=== PATIENT | male | born 1935 | race Caucasian/White ===

== ENCOUNTER 2024-02-28 02:42 | Inpatient (IN) | payer OTHER, MEDICARE ==
[2024-02-28] VITALS (7 sets, daily range): BP systolic 89–106; BP diastolic 50–60; TEMP 97.8–98.6; O2SAT 94–97
[~2024-02-28] VITALS: Ht 188 cm; Wt 81.0 kg
[2024-02-28 03:19] LABS: VENOUS HCO3 20.7 MMOL/L (23.0-27.0); VENOUS O2 SATURATION 56.9 % (60.0-80.0); VENOUS PARTIAL PRESSURE CO2 50.1 mmHg (38.0-50.0); VENOUS PARTIAL PRESSURE O2 32.3 mmHg (30.0-50.0); VENOUS PH 7.233 UNITS (7.330-7.430); VENOUS TOTAL CO2 22.2 MMOL/L (24.0-28.0)
[2024-02-28 03:29] LABS: BASO % 0.2 % (0.0-1.0); EOS # 0.1 10^3/uL (0.0-0.5); EOS % 2.1 % (0.0-3.0); HEMATOCRIT 37.1 % (42.0-52.0); HEMOGLOBIN 11.9 g/dl (13.5-17.5); LYMPH # 0.7 10^3/uL (1.5-5.0); LYMPH % 13.3 % (24.0-44.0); MEAN CORPUSCULAR HEMOGLOBIN 30.8 pg (27.0-33.0); MEAN CORPUSCULAR HGB CONC 32.1 g/dl (32.0-36.5); MEAN CORPUSCULAR VOLUME 96.1 fl (80.0-96.0); MONO # 0.2 10^3/uL (0.0-0.8); NEUTROPHILS # 4.2 10^3/uL (1.5-8.5); NEUTROPHILS % 80.2 % (36.0-66.0); PLATELET COUNT, AUTOMATED 142 10^3/uL (150-450); RED BLOOD COUNT 3.86 10^6/uL (4.30-6.10); WHITE BLOOD COUNT 5.3 10^3/uL (4.0-10.0)
[2024-02-28] MEDS: NS (Normal Saline) 0.9% 1,000 ML IV ONE ×5 (03:37→18:36)
[2024-02-28 03:48] LABS: CK-MB VALUE MASS 1.2 NG/ML (<3.6)
[2024-02-28 03:51] LABS: CALCIUM LEVEL 9.6 MG/DL (8.3-10.6); CREATININE FOR GFR 2.09 MG/DL (0.70-1.30); GLOMERULAR FILTRATION RATE 32.1 (>35); MAGNESIUM LEVEL 1.6 MG/DL (1.8-2.4); POTASSIUM SERUM 3.9 MMOL/L (3.5-5.1)
[2024-02-28 03:52] LABS: THYROID STIMULATING HORMONE 0.779 uIU/ML (0.55-4.78)
[2024-02-28 03:53] LABS: FREE T4 1.41 NG/DL (0.89-1.76)
[2024-02-28 03:54] LABS: INR 1.08; PARTIAL THROMBOPLASTIN TIME 23.1 SECONDS (24.8-34.2); PROTHROMBIN TIME 14.3 SECONDS (12.5-14.5)
[2024-02-28 03:59] LABS: MB/CK RELATIVE INDEX 2.03 (< OR =4)
[2024-02-28] MEDS ORDERED: LEVO175T2 PO (04:26)
[2024-02-28] MEDS ORDERED: PANT40TA29 PO (04:26)
[2024-02-28] MEDS ORDERED: TROS20TA3 PO (04:26)
[2024-02-28] MEDS ORDERED: TRIA37.577 PO (04:26)
[2024-02-28] MEDS: LIDOCAINE 2% MDV 20ML VIAL SC ONE (04:35)
[2024-02-28] MEDS: MAG SULF 1GM/100ML (MAG RUN) 1 GM in IV 1 EA IV ONE (04:37)
[2024-02-28] MEDS ORDERED: metroNIDAZOLE 500 MG in IV 1 EA IV ONE (05:30)
[2024-02-28] MEDS ORDERED: VANCOMYCIN 125MG CAPSULE PO SCH ×2 (05:35→12:00)
[2024-02-28] MEDS: VANCOMYCIN 125MG CAPSULE PO ONE (05:49)
[2024-02-28] MEDS: LOPERAMIDE 2 MG CAPLET PO PRN (07:11)
[2024-02-28 07:39] LABS: BASO % 0.1 % (0.0-1.0); EOS # 0.2 10^3/uL (0.0-0.5); HEMATOCRIT 32.2 % (42.0-52.0); HEMOGLOBIN 10.3 g/dl (13.5-17.5); LYMPH # 0.3 10^3/uL (1.5-5.0); LYMPH % 4.2 % (24.0-44.0); MEAN CORPUSCULAR HEMOGLOBIN 31.2 pg (27.0-33.0); MEAN CORPUSCULAR VOLUME 97.6 fl (80.0-96.0); MONO # 0.7 10^3/uL (0.0-0.8); MONO % 9.7 % (2.0-8.0); NEUTROPHILS # 6.2 10^3/uL (1.5-8.5); NEUTROPHILS % 83.7 % (36.0-66.0); PLATELET COUNT, AUTOMATED 127 10^3/uL (150-450); WHITE BLOOD COUNT 7.5 10^3/uL (4.0-10.0)
[2024-02-28 07:49] LABS: ERYTHROCYTE SEDIMENTATION RATE < 1 mm/hr (0-20)
[2024-02-28 08:21] LABS: CALCIUM LEVEL 8.5 MG/DL (8.3-10.6); CREATININE FOR GFR 1.84 MG/DL (0.70-1.30); GLOMERULAR FILTRATION RATE 37.1 (>35); POTASSIUM SERUM 3.7 MMOL/L (3.5-5.1)
[2024-02-28] MEDS: FIDAXOMICIN 200 MG TAB (DIFICID) PO SCH (09:22)
[2024-02-28] MEDS: FAMOTIDINE 20 MG TAB PO SCH (11:09)
[2024-02-28] MEDS: LEVOTHYROXINE 125MCG TABLET (0.125MG) PO SCH (11:10)
[2024-02-28] MEDS: ENOXAPARIN 30MG/0.3ML SYRINGE (J1650 PER 10MG) SC SCH (11:11)
[2024-02-28] MEDS: NS (Normal Saline) 0.9% 1,000 ML IV SCH (14:17)
[2024-02-28] MEDS ORDERED: HOME MED LIST COMPLETE! XX SCH (15:25)
[2024-02-28] MEDS: CALCIUM CARBONATE 500 MG CHEW U/D PO PRN (17:05)
[2024-02-28] MEDS: LEVOTHYROXINE 50MCG TABLET (0.05MG) PO SCH (17:05)
[2024-02-29] VITALS (7 sets, daily range): BP systolic 94–122; BP diastolic 54–87; TEMP 97.2–98.2; O2SAT 92–100
[2024-02-29 06:28] LABS: HEMOGLOBIN 10.3 g/dl (13.5-17.5); MEAN CORPUSCULAR HGB CONC 31.2 g/dl (32.0-36.5); MEAN CORPUSCULAR VOLUME 99.4 fl (80.0-96.0); PLATELET COUNT, AUTOMATED 124 10^3/uL (150-450); RED BLOOD COUNT 3.32 10^6/uL (4.30-6.10); WHITE BLOOD COUNT 6.5 10^3/uL (4.0-10.0)
[2024-02-29 06:54] LABS: CALCIUM LEVEL 8.8 MG/DL (8.3-10.6); CREATININE FOR GFR 1.69 MG/DL (0.70-1.30); POTASSIUM SERUM 4.1 MMOL/L (3.5-5.1)
[2024-02-29 07:09] LABS: EOSINOPHILS 3 % (0-3); LYMPHOCYTES 20 % (16-44); MONOCYTES 7 % (0-5); NEUTROPHILS 70 % (28-66); PLATELET ESTIMATE NORMAL (NORMAL); POIKILOCYTOSIS 2+
[2024-02-29 07:10] LABS: SCHISTOCYTES 1+
[2024-02-29 07:11] LABS: ANISOCYTOSIS 1+; BURR CELLS 1+
[2024-02-29] MEDS: NS 0.45% 1,000 ML IV SCH (09:32)
[2024-03-01 04:00] VITALS: BP 114/58; TEMP 97.6; O2SAT 96
[2024-03-01 06:53] LABS: BASO % 0.2 % (0.0-1.0); EOS # 0.5 10^3/uL (0.0-0.5); EOS % 7.8 % (0.0-3.0); HEMATOCRIT 31.3 % (42.0-52.0); LYMPH # 1.4 10^3/uL (1.5-5.0); LYMPH % 23.9 % (24.0-44.0); MEAN CORPUSCULAR HGB CONC 31.9 g/dl (32.0-36.5); MEAN CORPUSCULAR VOLUME 96.9 fl (80.0-96.0); MONO # 0.6 10^3/uL (0.0-0.8); MONO % 9.7 % (2.0-8.0); NEUTROPHILS # 3.5 10^3/uL (1.5-8.5); NEUTROPHILS % 57.9 % (36.0-66.0); PLATELET COUNT, AUTOMATED 134 10^3/uL (150-450); RED BLOOD COUNT 3.23 10^6/uL (4.30-6.10)
[2024-03-01 07:13] LABS: CALCIUM LEVEL 8.5 MG/DL (8.3-10.6); CREATININE FOR GFR 1.47 MG/DL (0.70-1.30); GLOMERULAR FILTRATION RATE 48.1 (>35); POTASSIUM SERUM 3.4 MMOL/L (3.5-5.1)
[2024-03-01] MEDS: SODIUM BICARBONATE 325 MG TAB PO SCH (08:49)
[2024-03-01] MEDS: POTASSIUM CHLORIDE 10MEQ SR TABLET PO ONE (08:50)
[2024-03-01 12:00] VITALS: BP 123/59; TEMP 98; O2SAT 94
[2024-03-01 20:28] VITALS: BP 121/61; TEMP 97.5; O2SAT 97
[2024-03-02 04:08] VITALS: BP 107/59; TEMP 97.8; O2SAT 98
[2024-03-02 06:49] LABS: BASO % 0.2 % (0.0-1.0); EOS # 0.4 10^3/uL (0.0-0.5); EOS % 7.6 % (0.0-3.0); HEMATOCRIT 28.6 % (42.0-52.0); HEMOGLOBIN 9.4 g/dl (13.5-17.5); LYMPH # 1.7 10^3/uL (1.5-5.0); LYMPH % 31.4 % (24.0-44.0); MEAN CORPUSCULAR HEMOGLOBIN 31.5 pg (27.0-33.0); MEAN CORPUSCULAR HGB CONC 32.9 g/dl (32.0-36.5); MONO # 0.5 10^3/uL (0.0-0.8); MONO % 8.6 % (2.0-8.0); NEUTROPHILS # 2.8 10^3/uL (1.5-8.5); NEUTROPHILS % 51.8 % (36.0-66.0); PLATELET COUNT, AUTOMATED 127 10^3/uL (150-450); RED BLOOD COUNT 2.98 10^6/uL (4.30-6.10); WHITE BLOOD COUNT 5.4 10^3/uL (4.0-10.0)
[2024-03-02 07:42] LABS: CALCIUM LEVEL 8.9 MG/DL (8.3-10.6); CREATININE FOR GFR 1.44 MG/DL (0.70-1.30); GLOMERULAR FILTRATION RATE 49.3 (>35); POTASSIUM SERUM 3.9 MMOL/L (3.5-5.1)
[2024-03-02 12:23] VITALS: BP 99/51; TEMP 98.7; O2SAT 95
[2024-03-02 13:30] VITALS: BP_SYST 101; BP_SYST 99; BP_DIAS 51; BP_DIAS 52
[2024-03-02 13:36] VITALS: BP 67/41
[2024-03-02] MEDS: MIDODRINE 5 MG TAB PO SCH (18:03)
[2024-03-02 20:20] VITALS: BP 125/58; TEMP 98.1; O2SAT 99
[2024-03-02 23:03] VITALS: BP 122/77
[2024-03-03 04:00] VITALS: BP 128/62; TEMP 97.6; O2SAT 98
[2024-03-03 05:02] VITALS: BP 126/60
[2024-03-03 07:20] LABS: HEMATOCRIT 30.4 % (42.0-52.0); HEMOGLOBIN 10.1 g/dl (13.5-17.5); MEAN CORPUSCULAR HEMOGLOBIN 31.1 pg (27.0-33.0); MEAN CORPUSCULAR HGB CONC 33.2 g/dl (32.0-36.5); MEAN CORPUSCULAR VOLUME 93.5 fl (80.0-96.0); PLATELET COUNT, AUTOMATED 138 10^3/uL (150-450); RED BLOOD COUNT 3.25 10^6/uL (4.30-6.10); WHITE BLOOD COUNT 5.9 10^3/uL (4.0-10.0)
[2024-03-03 07:39] LABS: CALCIUM LEVEL 8.9 MG/DL (8.3-10.6); CREATININE FOR GFR 1.32 MG/DL (0.70-1.30); GLOMERULAR FILTRATION RATE 54.5 (>35); POTASSIUM SERUM 3.9 MMOL/L (3.5-5.1)
[2024-03-03 08:35] LABS: EOSINOPHILS 4 % (0-3); LYMPHOCYTES 25 % (16-44); MONOCYTES 5 % (0-5); MYELOCYTES 1 % (0-0); NEUTROPHILS 64 % (28-66); PLATELET ESTIMATE DECREASED (NORMAL)
[2024-03-03 08:37] LABS: POIKILOCYTOSIS 2+
[2024-03-03 10:00] VITALS: BP_SYST 105; BP_SYST 87; BP_DIAS 52; BP_DIAS 55
[2024-03-03 12:11] VITALS: BP 119/55; TEMP 97.5; O2SAT 100
[2024-03-03 12:18] VITALS: BP 128/76; TEMP 98.2; O2SAT 92
[2024-03-03 16:56] LABS: CK-MB VALUE MASS 1.8 NG/ML (<3.6)
[2024-03-03 16:57] LABS: MB/CK RELATIVE INDEX 3.75 (< OR =4)
[2024-03-03 20:09] VITALS: BP 124/56; TEMP 97.3; O2SAT 94
[2024-03-03] MEDS: NS (Normal Saline) 0.9% 1,000 ML IV SCH (20:45)
[2024-03-04 03:27] VITALS: BP 106/57; TEMP 97.6; O2SAT 93
[2024-03-04 06:48] LABS: BASO % 0.4 % (0.0-1.0); EOS # 0.4 10^3/uL (0.0-0.5); EOS % 6.8 % (0.0-3.0); HEMATOCRIT 29.7 % (42.0-52.0); LYMPH # 1.9 10^3/uL (1.5-5.0); LYMPH % 34.3 % (24.0-44.0); MEAN CORPUSCULAR HEMOGLOBIN 31.8 pg (27.0-33.0); MEAN CORPUSCULAR HGB CONC 33.7 g/dl (32.0-36.5); MEAN CORPUSCULAR VOLUME 94.6 fl (80.0-96.0); MONO # 0.6 10^3/uL (0.0-0.8); MONO % 11.1 % (2.0-8.0); NEUTROPHILS # 2.5 10^3/uL (1.5-8.5); NEUTROPHILS % 46.8 % (36.0-66.0); PLATELET COUNT, AUTOMATED 151 10^3/uL (150-450); RED BLOOD COUNT 3.14 10^6/uL (4.30-6.10); WHITE BLOOD COUNT 5.4 10^3/uL (4.0-10.0)
[2024-03-04 06:53] LABS: CALCIUM LEVEL 8.6 MG/DL (8.3-10.6); CREATININE FOR GFR 1.24 MG/DL (0.70-1.30); GLOMERULAR FILTRATION RATE 58.6 (>35); POTASSIUM SERUM 4.2 MMOL/L (3.5-5.1)
[2024-03-04 10:21] VITALS: BP_SYST 104; BP_SYST 110; BP_SYST 133; BP_DIAS 51; BP_DIAS 56; BP_DIAS 63
[2024-03-04 11:52] VITALS: BP 137/59; TEMP 97.3; O2SAT 99
[2024-03-04 12:37] VITALS: BP 116/58
[2024-03-04 13:50] VITALS: BP 140/70; TEMP 97.3; O2SAT 100
[2024-03-04] MEDS: MIDODRINE 5 MG TAB PO SCH (15:46)
[2024-03-04] MEDS: cefTRIAXone SOD 1 GM in DEXTROSE 5% (D5W) ADV/MINI-BAG 50 ML IV SCH (15:46)
[2024-03-04] MEDS ORDERED: MIDODRINE 2.5 MG TAB PO SCH (16:00)
[2024-03-04 20:00] VITALS: BP 124/55; TEMP 97.9; O2SAT 99
[2024-03-05 04:00] VITALS: BP 127/56; TEMP 97.9; O2SAT 99
[2024-03-05 05:01] LABS: BASO % 0.4 % (0.0-1.0); EOS # 0.4 10^3/uL (0.0-0.5); EOS % 6.8 % (0.0-3.0); HEMATOCRIT 29.4 % (42.0-52.0); HEMOGLOBIN 9.7 g/dl (13.5-17.5); LYMPH # 1.5 10^3/uL (1.5-5.0); LYMPH % 26.5 % (24.0-44.0); MEAN CORPUSCULAR HEMOGLOBIN 31.6 pg (27.0-33.0); MEAN CORPUSCULAR VOLUME 95.8 fl (80.0-96.0); MONO # 0.6 10^3/uL (0.0-0.8); MONO % 11.7 % (2.0-8.0); NEUTROPHILS % 54.2 % (36.0-66.0); PLATELET COUNT, AUTOMATED 156 10^3/uL (150-450); RED BLOOD COUNT 3.07 10^6/uL (4.30-6.10); WHITE BLOOD COUNT 5.5 10^3/uL (4.0-10.0)
[2024-03-05 05:29] LABS: BLOOD UREA NITROGEN 21 MG/DL (9-23); CALCIUM LEVEL 8.7 MG/DL (8.3-10.6); CARBON DIOXIDE LEVEL 24 MMOL/L (20-31); CHLORIDE LEVEL 112 MMOL/L (98-107); CREATININE FOR GFR 1.18 MG/DL (0.70-1.30); GLOMERULAR FILTRATION RATE > 60.0 (>35); GLUCOSE, FASTING 107 MG/DL (74-106); POTASSIUM SERUM 3.9 MMOL/L (3.5-5.1); SODIUM LEVEL 143 MMOL/L (136-145)
[2024-03-05 10:20] VITALS: BP_SYST 108; BP_SYST 120; BP_SYST 90; BP_DIAS 38; BP_DIAS 50; BP_DIAS 56
[2024-03-05] MEDS: FLUBLOK(EGGFREE) TRIVAL(24-25) VACCINE PF 0.5ML SYRINGE 18YRS & OLDER IM.IMMUN ONE (10:57)
[2024-03-05 12:00] VITALS: BP 123/61; TEMP 97.7; O2SAT 95
[2024-03-05 20:20] VITALS: BP 135/70; TEMP 97.9; O2SAT 90
[2024-03-06 04:10] VITALS: BP 125/63; TEMP 97.5; O2SAT 97
[2024-03-06 05:15] LABS: BASO % 0.3 % (0.0-1.0); EOS # 0.4 10^3/uL (0.0-0.5); EOS % 6.9 % (0.0-3.0); HEMATOCRIT 29.7 % (42.0-52.0); HEMOGLOBIN 9.8 g/dl (13.5-17.5); LYMPH # 1.4 10^3/uL (1.5-5.0); LYMPH % 22.2 % (24.0-44.0); MEAN CORPUSCULAR HEMOGLOBIN 31.1 pg (27.0-33.0); MEAN CORPUSCULAR VOLUME 94.3 fl (80.0-96.0); MONO # 0.7 10^3/uL (0.0-0.8); MONO % 11.2 % (2.0-8.0); NEUTROPHILS # 3.7 10^3/uL (1.5-8.5); NEUTROPHILS % 58.9 % (36.0-66.0); PLATELET COUNT, AUTOMATED 164 10^3/uL (150-450); RED BLOOD COUNT 3.15 10^6/uL (4.30-6.10); WHITE BLOOD COUNT 6.4 10^3/uL (4.0-10.0)
[2024-03-06 05:39] LABS: BLOOD UREA NITROGEN 19 MG/DL (9-23); CALCIUM LEVEL 8.6 MG/DL (8.3-10.6); CARBON DIOXIDE LEVEL 27 MMOL/L (20-31); CHLORIDE LEVEL 108 MMOL/L (98-107); CREATININE FOR GFR 1.06 MG/DL (0.70-1.30); GLOMERULAR FILTRATION RATE > 60.0 (>35); GLUCOSE, FASTING 79 MG/DL (74-106); SODIUM LEVEL 139 MMOL/L (136-145)
[2024-03-06] MEDS: MIDODRINE 5 MG TAB PO SCH (08:06)
[2024-03-06 09:34] VITALS: BP_SYST 123; BP_SYST 88; BP_SYST 92; BP_DIAS 54; BP_DIAS 57; BP_DIAS 61
[2024-03-06 12:28] VITALS: BP 140/60; TEMP 98.1; O2SAT 98
[2024-03-06 13:15] VITALS: BP_SYST 102; BP_SYST 132; BP_SYST 86; BP_DIAS 47; BP_DIAS 63; BP_DIAS 66
[2024-03-06] MEDS: ACETAMINOPHEN 325 MG TAB PO PRN (18:22)
[2024-03-06] MEDS: CEFDINIR 300 MG CAP (OMNICEF) PO SCH (20:02)
[2024-03-06 21:00] VITALS: BP 121/63; TEMP 98.1; O2SAT 98
[2024-03-07 04:00] VITALS: BP 105/58; TEMP 98.8; O2SAT 97
[2024-03-07 06:24] LABS: HEMATOCRIT 30.4 % (42.0-52.0); HEMOGLOBIN 9.9 g/dl (13.5-17.5); MEAN CORPUSCULAR HEMOGLOBIN 30.9 pg (27.0-33.0); MEAN CORPUSCULAR HGB CONC 32.6 g/dl (32.0-36.5); PLATELET COUNT, AUTOMATED 175 10^3/uL (150-450); WHITE BLOOD COUNT 6.9 10^3/uL (4.0-10.0)
[2024-03-07 06:54] LABS: ALBUMIN 2.3 G/DL (3.2-5.2); ALKALINE PHOSPHATASE 83 U/L (40-129); ALT/SGPT 11 U/L (7.0-40); AST/SGOT 9 U/L (<34); BILIRUBIN,TOTAL 0.4 MG/DL (0.3-1.2); BLOOD UREA NITROGEN 21 MG/DL (9-23); CALCIUM LEVEL 9.1 MG/DL (8.3-10.6); CARBON DIOXIDE LEVEL 29 MMOL/L (20-31); CHLORIDE LEVEL 104 MMOL/L (98-107); CREATININE FOR GFR 1.11 MG/DL (0.70-1.30); GLOMERULAR FILTRATION RATE > 60.0 (>35); GLUCOSE, FASTING 97 MG/DL (74-106); POTASSIUM SERUM 4.2 MMOL/L (3.5-5.1); SODIUM LEVEL 138 MMOL/L (136-145); TOTAL PROTEIN 5.4 G/DL (5.7-8.2)
[2024-03-07 10:52] VITALS: BP_SYST 106; BP_SYST 79; BP_SYST 82; BP_DIAS 43; BP_DIAS 47; BP_DIAS 50
[2024-03-07 12:00] VITALS: BP 100/55; TEMP 97.9; O2SAT 99
[2024-03-07] MEDS: FLUDROCORTISONE ACETATE 0.1 MG TAB PO SCH (16:25)
[2024-03-07 20:20] VITALS: BP 111/54; TEMP 98.1; O2SAT 99
[2024-03-08 03:40] VITALS: BP 120/46; TEMP 97.7; O2SAT 96
[2024-03-08 05:11] LABS: HEMATOCRIT 29.9 % (42.0-52.0); HEMOGLOBIN 9.6 g/dl (13.5-17.5); MEAN CORPUSCULAR HGB CONC 32.1 g/dl (32.0-36.5); MEAN CORPUSCULAR VOLUME 96.5 fl (80.0-96.0); PLATELET COUNT, AUTOMATED 180 10^3/uL (150-450); WHITE BLOOD COUNT 6.2 10^3/uL (4.0-10.0)
[2024-03-08 05:34] LABS: ALBUMIN 2.3 G/DL (3.2-5.2); ALKALINE PHOSPHATASE 75 U/L (40-129); ALT/SGPT 11 U/L (7.0-40); AST/SGOT 12 U/L (<34); BILIRUBIN,TOTAL 0.5 MG/DL (0.3-1.2); BLOOD UREA NITROGEN 26 MG/DL (9-23); CALCIUM LEVEL 8.9 MG/DL (8.3-10.6); CARBON DIOXIDE LEVEL 29 MMOL/L (20-31); CHLORIDE LEVEL 105 MMOL/L (98-107); GLOMERULAR FILTRATION RATE > 60.0 (>35); GLUCOSE, FASTING 85 MG/DL (74-106); POTASSIUM SERUM 4.4 MMOL/L (3.5-5.1); SODIUM LEVEL 140 MMOL/L (136-145); TOTAL PROTEIN 5.2 G/DL (5.7-8.2)
[2024-03-08 12:00] VITALS: BP 132/61; TEMP 97.3; O2SAT 90
[2024-03-08 17:09] VITALS: BP 157/75
[2024-03-08 18:44] VITALS: BP_SYST 120; BP_SYST 86; BP_SYST 91; BP_DIAS 49; BP_DIAS 52; BP_DIAS 61
[2024-03-09 04:00] VITALS: BP 116/58; TEMP 97.7; O2SAT 96
[2024-03-09 05:08] LABS: HEMATOCRIT 29.9 % (42.0-52.0); HEMOGLOBIN 9.8 g/dl (13.5-17.5); MEAN CORPUSCULAR HEMOGLOBIN 31.3 pg (27.0-33.0); MEAN CORPUSCULAR HGB CONC 32.8 g/dl (32.0-36.5); MEAN CORPUSCULAR VOLUME 95.5 fl (80.0-96.0); PLATELET COUNT, AUTOMATED 199 10^3/uL (150-450); RED BLOOD COUNT 3.13 10^6/uL (4.30-6.10); WHITE BLOOD COUNT 5.2 10^3/uL (4.0-10.0)
[2024-03-09 05:38] LABS: ALBUMIN 2.2 G/DL (3.2-5.2); ALKALINE PHOSPHATASE 74 U/L (40-129); ALT/SGPT 15 U/L (7.0-40); AST/SGOT 11 U/L (<34); BILIRUBIN,TOTAL 0.4 MG/DL (0.3-1.2); BLOOD UREA NITROGEN 27 MG/DL (9-23); CALCIUM LEVEL 8.9 MG/DL (8.3-10.6); CARBON DIOXIDE LEVEL 30 MMOL/L (20-31); CHLORIDE LEVEL 105 MMOL/L (98-107); CREATININE FOR GFR 1.15 MG/DL (0.70-1.30); GLOMERULAR FILTRATION RATE > 60.0 (>35); GLUCOSE, FASTING 84 MG/DL (74-106); POTASSIUM SERUM 4.3 MMOL/L (3.5-5.1); SODIUM LEVEL 139 MMOL/L (136-145); TOTAL PROTEIN 5.3 G/DL (5.7-8.2)
[2024-03-09] MEDS ORDERED: ISOVUE-370 76% 100ML VIAL As Ordered ONE (08:17)
[2024-03-09 10:15] VITALS: BP_SYST 101; BP_SYST 121; BP_SYST 77; BP_DIAS 44; BP_DIAS 56
[2024-03-09 12:00] VITALS: BP 106/61; TEMP 97.7; O2SAT 92
[2024-03-09 20:00] VITALS: BP 144/68; TEMP 98.2; O2SAT 100
[2024-03-10 04:00] VITALS: BP 121/56; TEMP 97.5; O2SAT 96
[2024-03-10 06:11] LABS: BASO % 0.7 % (0.0-1.0); EOS # 0.5 10^3/uL (0.0-0.5); EOS % 9.9 % (0.0-3.0); HEMATOCRIT 28.6 % (42.0-52.0); HEMOGLOBIN 9.1 g/dl (13.5-17.5); LYMPH # 1.8 10^3/uL (1.5-5.0); MEAN CORPUSCULAR HEMOGLOBIN 31.3 pg (27.0-33.0); MEAN CORPUSCULAR HGB CONC 31.8 g/dl (32.0-36.5); MEAN CORPUSCULAR VOLUME 98.3 fl (80.0-96.0); MONO # 0.5 10^3/uL (0.0-0.8); MONO % 8.4 % (2.0-8.0); NEUTROPHILS # 2.7 10^3/uL (1.5-8.5); NEUTROPHILS % 48.6 % (36.0-66.0); PLATELET COUNT, AUTOMATED 196 10^3/uL (150-450); RED BLOOD COUNT 2.91 10^6/uL (4.30-6.10); WHITE BLOOD COUNT 5.5 10^3/uL (4.0-10.0)
[2024-03-10 06:38] LABS: CREATININE FOR GFR 1.3 MG/DL (0.70-1.30); GLOMERULAR FILTRATION RATE 55.5 (>35); POTASSIUM SERUM 4.3 MMOL/L (3.5-5.1)
[2024-03-10 09:00] VITALS: BP_SYST 112; BP_SYST 115; BP_SYST 83; BP_DIAS 56; BP_DIAS 57; BP_DIAS 61
[2024-03-10 12:00] VITALS: BP 88/42; TEMP 97.2; O2SAT 97
[2024-03-10 20:00] VITALS: BP 103/53; TEMP 97.9; O2SAT 96
[2024-03-11 04:00] VITALS: BP 124/64; TEMP 97.7; O2SAT 95
[2024-03-11 07:01] LABS: BASO % 0.6 % (0.0-1.0); EOS # 0.5 10^3/uL (0.0-0.5); EOS % 9.3 % (0.0-3.0); HEMATOCRIT 28.1 % (42.0-52.0); HEMOGLOBIN 9.1 g/dl (13.5-17.5); LYMPH # 1.7 10^3/uL (1.5-5.0); LYMPH % 35.1 % (24.0-44.0); MEAN CORPUSCULAR HEMOGLOBIN 31.2 pg (27.0-33.0); MEAN CORPUSCULAR HGB CONC 32.4 g/dl (32.0-36.5); MEAN CORPUSCULAR VOLUME 96.2 fl (80.0-96.0); MONO # 0.5 10^3/uL (0.0-0.8); MONO % 9.3 % (2.0-8.0); NEUTROPHILS # 2.2 10^3/uL (1.5-8.5); NEUTROPHILS % 45.3 % (36.0-66.0); PLATELET COUNT, AUTOMATED 201 10^3/uL (150-450); RED BLOOD COUNT 2.92 10^6/uL (4.30-6.10); WHITE BLOOD COUNT 4.8 10^3/uL (4.0-10.0)
[2024-03-11 07:26] LABS: CALCIUM LEVEL 8.9 MG/DL (8.3-10.6); CREATININE FOR GFR 1.28 MG/DL (0.70-1.30); GLOMERULAR FILTRATION RATE 56.3 (>35); POTASSIUM SERUM 4.3 MMOL/L (3.5-5.1)
[2024-03-11] MEDS: FLUDROCORTISONE ACETATE 0.1 MG TAB PO SCH (08:15)
[2024-03-11 12:00] VITALS: BP 114/60; TEMP 97.7; O2SAT 94
[2024-03-12 04:28] VITALS: BP 107/60; TEMP 97.7; O2SAT 96
[2024-03-12] MEDS ORDERED: NS 500 ML IV ONE (06:00)
[2024-03-12 07:12] LABS: BASO % 0.8 % (0.0-1.0); EOS # 0.4 10^3/uL (0.0-0.5); EOS % 7.9 % (0.0-3.0); HEMATOCRIT 29.1 % (42.0-52.0); HEMOGLOBIN 9.1 g/dl (13.5-17.5); LYMPH # 1.7 10^3/uL (1.5-5.0); LYMPH % 33.4 % (24.0-44.0); MEAN CORPUSCULAR HEMOGLOBIN 30.7 pg (27.0-33.0); MEAN CORPUSCULAR HGB CONC 31.3 g/dl (32.0-36.5); MEAN CORPUSCULAR VOLUME 98.3 fl (80.0-96.0); MONO # 0.4 10^3/uL (0.0-0.8); MONO % 8.1 % (2.0-8.0); NEUTROPHILS # 2.5 10^3/uL (1.5-8.5); NEUTROPHILS % 49.4 % (36.0-66.0); RED BLOOD COUNT 2.96 10^6/uL (4.30-6.10); WHITE BLOOD COUNT 5.1 10^3/uL (4.0-10.0)
[2024-03-12 07:31] LABS: CALCIUM LEVEL 8.6 MG/DL (8.3-10.6); CREATININE FOR GFR 1.22 MG/DL (0.70-1.30); GLOMERULAR FILTRATION RATE 59.5 (>35); POTASSIUM SERUM 4.5 MMOL/L (3.5-5.1)
[2024-03-13 04:00] VITALS: BP 114/61; TEMP 97.9; O2SAT 96
[2024-03-13 04:32] LABS: BASO % 0.5 % (0.0-1.0); EOS # 0.5 10^3/uL (0.0-0.5); EOS % 7.8 % (0.0-3.0); HEMOGLOBIN 8.9 g/dl (13.5-17.5); LYMPH # 1.9 10^3/uL (1.5-5.0); LYMPH % 33.4 % (24.0-44.0); MEAN CORPUSCULAR HEMOGLOBIN 31.3 pg (27.0-33.0); MEAN CORPUSCULAR HGB CONC 31.8 g/dl (32.0-36.5); MEAN CORPUSCULAR VOLUME 98.6 fl (80.0-96.0); MONO # 0.5 10^3/uL (0.0-0.8); MONO % 7.8 % (2.0-8.0); NEUTROPHILS # 2.9 10^3/uL (1.5-8.5); NEUTROPHILS % 50.2 % (36.0-66.0); PLATELET COUNT, AUTOMATED 211 10^3/uL (150-450); RED BLOOD COUNT 2.84 10^6/uL (4.30-6.10); WHITE BLOOD COUNT 5.7 10^3/uL (4.0-10.0)
[2024-03-13 04:56] LABS: BLOOD UREA NITROGEN 28 MG/DL (9-23); CALCIUM LEVEL 8.9 MG/DL (8.3-10.6); CARBON DIOXIDE LEVEL 30 MMOL/L (20-31); CHLORIDE LEVEL 107 MMOL/L (98-107); CREATININE FOR GFR 1.16 MG/DL (0.70-1.30); GLOMERULAR FILTRATION RATE > 60.0 (>35); GLUCOSE, FASTING 89 MG/DL (74-106); POTASSIUM SERUM 4.3 MMOL/L (3.5-5.1); SODIUM LEVEL 141 MMOL/L (136-145)
[2024-03-14 04:49] VITALS: BP 114/62; TEMP 98.4; O2SAT 98
[2024-03-14 06:22] LABS: BASO % 0.8 % (0.0-1.0); EOS # 0.5 10^3/uL (0.0-0.5); EOS % 9.4 % (0.0-3.0); HEMOGLOBIN 9.4 g/dl (13.5-17.5); LYMPH # 1.5 10^3/uL (1.5-5.0); LYMPH % 30.4 % (24.0-44.0); MEAN CORPUSCULAR HGB CONC 31.3 g/dl (32.0-36.5); MONO # 0.4 10^3/uL (0.0-0.8); MONO % 8.4 % (2.0-8.0); NEUTROPHILS # 2.5 10^3/uL (1.5-8.5); NEUTROPHILS % 50.8 % (36.0-66.0); PLATELET COUNT, AUTOMATED 237 10^3/uL (150-450); RED BLOOD COUNT 3.03 10^6/uL (4.30-6.10); WHITE BLOOD COUNT 4.9 10^3/uL (4.0-10.0)
[2024-03-14 06:47] LABS: CREATININE FOR GFR 1.22 MG/DL (0.70-1.30); GLOMERULAR FILTRATION RATE 59.5 (>35); POTASSIUM SERUM 4.1 MMOL/L (3.5-5.1)
[2024-03-15 04:00] VITALS: BP 103/58; TEMP 97.7; O2SAT 93
[2024-03-15 06:40] LABS: BASO % 0.7 % (0.0-1.0); EOS # 0.4 10^3/uL (0.0-0.5); EOS % 7.5 % (0.0-3.0); HEMATOCRIT 27.3 % (42.0-52.0); HEMOGLOBIN 8.6 g/dl (13.5-17.5); LYMPH % 35.2 % (24.0-44.0); MEAN CORPUSCULAR HEMOGLOBIN 31.3 pg (27.0-33.0); MEAN CORPUSCULAR HGB CONC 31.5 g/dl (32.0-36.5); MEAN CORPUSCULAR VOLUME 99.3 fl (80.0-96.0); MONO # 0.6 10^3/uL (0.0-0.8); MONO % 10.5 % (2.0-8.0); NEUTROPHILS # 2.6 10^3/uL (1.5-8.5); NEUTROPHILS % 45.8 % (36.0-66.0); PLATELET COUNT, AUTOMATED 227 10^3/uL (150-450); RED BLOOD COUNT 2.75 10^6/uL (4.30-6.10); WHITE BLOOD COUNT 5.7 10^3/uL (4.0-10.0)
[2024-03-15 07:13] LABS: CALCIUM LEVEL 9.1 MG/DL (8.3-10.6); CREATININE FOR GFR 1.46 MG/DL (0.70-1.30); GLOMERULAR FILTRATION RATE 48.4 (>35); POTASSIUM SERUM 4.6 MMOL/L (3.5-5.1)
[2024-03-16 04:00] VITALS: BP 102/56; TEMP 97.5; O2SAT 94
[2024-03-16 06:34] LABS: BASO % 0.9 % (0.0-1.0); EOS # 0.4 10^3/uL (0.0-0.5); EOS % 9.3 % (0.0-3.0); HEMATOCRIT 27.2 % (42.0-52.0); HEMOGLOBIN 8.5 g/dl (13.5-17.5); LYMPH # 1.6 10^3/uL (1.5-5.0); LYMPH % 34.7 % (24.0-44.0); MEAN CORPUSCULAR HEMOGLOBIN 30.6 pg (27.0-33.0); MEAN CORPUSCULAR HGB CONC 31.3 g/dl (32.0-36.5); MEAN CORPUSCULAR VOLUME 97.8 fl (80.0-96.0); MONO # 0.5 10^3/uL (0.0-0.8); MONO % 9.9 % (2.0-8.0); NEUTROPHILS # 2.1 10^3/uL (1.5-8.5); PLATELET COUNT, AUTOMATED 229 10^3/uL (150-450); RED BLOOD COUNT 2.78 10^6/uL (4.30-6.10); WHITE BLOOD COUNT 4.6 10^3/uL (4.0-10.0)
[2024-03-16 06:56] LABS: CALCIUM LEVEL 8.9 MG/DL (8.3-10.6); CREATININE FOR GFR 1.28 MG/DL (0.70-1.30); GLOMERULAR FILTRATION RATE 56.3 (>35); POTASSIUM SERUM 4.3 MMOL/L (3.5-5.1)
[2024-03-17 04:00] VITALS: BP 101/56; TEMP 97.7; O2SAT 97
[2024-03-18 04:00] VITALS: BP 112/59; TEMP 98.1; O2SAT 98
[2024-03-18] MEDS ORDERED: FLUD0.1T PO (09:02)
[2024-03-18] MEDS ORDERED: FAMO20TA PO (09:02)
[2024-03-19 03:50] VITALS: BP 125/56; TEMP 97.9; O2SAT 97
== END 2024-03-19 12:04 | disposition home health service (06) | DRG 371 ==
LOC: EDBD 02:42 → M ED 02:42 → M ED INP 05:56 → M PCU 07:48 → M MS4PR 02-29 20:30 → M MSPAV 03-04 13:44
PROVIDERS: ADMIT Student in an Organized Health Care Education/Training Program; ATTEND Internal Medicine
DX: A04.72 Enterocolitis due to Clostridium difficile, not specified as recurrent (principal); E43 Unspecified severe protein-calorie malnutrition; E87.20 Acidosis, unspecified; N17.9 Acute kidney failure, unspecified; N39.0 Urinary tract infection, site not specified; E83.42 Hypomagnesemia; R00.1 Bradycardia, unspecified; D64.9 Anemia, unspecified; I95.1 Orthostatic hypotension; B96.20 Unspecified Escherichia coli [E. coli] as the cause of diseases classified elsewhere; I10 Essential (primary) hypertension; K21.9 Gastro-esophageal reflux disease without esophagitis; D69.6 Thrombocytopenia, unspecified; S01.01XA Laceration without foreign body of scalp, initial encounter; W18.30XA Fall on same level, unspecified, initial encounter; Y92.009 Unspecified place in unspecified non-institutional (private) residence as the place of occurrence of the external cause; Z79.899 Other long term (current) drug therapy

== ENCOUNTER 2024-04-02 16:20 | Observation (INO) | payer MEDICARE, OTHER ==
[~2024-04-02] VITALS: Ht 188 cm; Wt 89.4 kg
[~2024-04-02 16:20] MED LIST: FAMO20TA PO; FLUD0.1T PO; LEVO175T2 PO; PANT40TA29 PO; TRIA37.577 PO; TROS20TA3 PO
[2024-04-02 17:29] LABS: BASO % 0.6 % (0.0-1.0); EOS # 0.4 10^3/uL (0.0-0.5); EOS % 5.4 % (0.0-3.0); HEMATOCRIT 32.5 % (42.0-52.0); HEMOGLOBIN 10.3 g/dl (13.5-17.5); LYMPH # 1.5 10^3/uL (1.5-5.0); LYMPH % 21.5 % (24.0-44.0); MEAN CORPUSCULAR HEMOGLOBIN 30.9 pg (27.0-33.0); MEAN CORPUSCULAR HGB CONC 31.7 g/dl (32.0-36.5); MEAN CORPUSCULAR VOLUME 97.6 fl (80.0-96.0); MONO # 0.5 10^3/uL (0.0-0.8); NEUTROPHILS # 4.5 10^3/uL (1.5-8.5); NEUTROPHILS % 65.2 % (36.0-66.0); PLATELET COUNT, AUTOMATED 181 10^3/uL (150-450); RED BLOOD COUNT 3.33 10^6/uL (4.30-6.10); WHITE BLOOD COUNT 6.8 10^3/uL (4.0-10.0)
[2024-04-02 17:45] LABS: CPK CREATINE PHOSPHOKINASE 42 U/L (46-171)
[2024-04-02 17:46] LABS: ALKALINE PHOSPHATASE 113 U/L (40-129); ALT/SGPT 10 U/L (7.0-40); AST/SGOT 12 U/L (<34); BILIRUBIN,DIRECT 0.1 MG/DL (<0.4); BILIRUBIN,TOTAL 0.3 MG/DL (0.3-1.2); BLOOD UREA NITROGEN 19 MG/DL (9-23); CALCIUM LEVEL 9.1 MG/DL (8.3-10.6); CARBON DIOXIDE LEVEL 30 MMOL/L (20-31); CHLORIDE LEVEL 107 MMOL/L (98-107); CK-MB VALUE MASS < 1.0 NG/ML (<3.6); CREATININE FOR GFR 1.23 MG/DL (0.70-1.30); GLUCOSE, FASTING 89 MG/DL (74-106); MB/CK RELATIVE INDEX 2.38 (< OR =4); POTASSIUM SERUM 4.2 MMOL/L (3.5-5.1); SODIUM LEVEL 143 MMOL/L (136-145)
[2024-04-02 17:50] LABS: THYROID STIMULATING HORMONE 0.566 uIU/ML (0.55-4.78); THYROXINE (T4) 7.7 UG/DL (4.5-10.9)
[2024-04-02 19:50] LABS: CK-MB VALUE MASS < 1.0 NG/ML (<3.6)
[2024-04-02 19:52] LABS: CPK CREATINE PHOSPHOKINASE 52 U/L (46-171); MB/CK RELATIVE INDEX 1.92 (< OR =4)
[2024-04-02] MEDS: FUROSEMIDE 100MG/10ML VIAL IV ONE (20:54)
[2024-04-02] MEDS ORDERED: FLUD0.1T PO (21:43)
[2024-04-02] MEDS ORDERED: FAMO1TAB11 PO (21:43)
[2024-04-02] MEDS ORDERED: DORZ2SOL20 OD (21:44)
[2024-04-02] MEDS ORDERED: RAMI1.258 PO (21:44)
[2024-04-02] MEDS ORDERED: HOME MED LIST COMPLETE! XX SCH (21:45)
[2024-04-02] MEDS ORDERED: ACETAMINOPHEN 325 MG TAB PO PRN (22:55)
[2024-04-02] MEDS ORDERED: MOM 30ML SUSPENSION UDC PO PRN (22:55)
[2024-04-03 00:42] VITALS: BP 123/56
[2024-04-03] MEDS: ramipriL 1.25 MG CAP PO SCH (00:42)
[2024-04-03 01:07] VITALS: BP 137/80; TEMP 97.7; O2SAT 99
[2024-04-03 02:50] VITALS: BP 125/59
[2024-04-03] MEDS: FUROSEMIDE 100MG/10ML VIAL IV SCH (02:55)
[2024-04-03] MEDS ORDERED: MAG SULF 1GM/100ML (MAG RUN) 1 GM in IV 1 EA IV SCH (04:00)
[2024-04-03 04:43] VITALS: BP 131/76; TEMP 97.5; O2SAT 98
[2024-04-03] MEDS: LEVOTHYROXINE 100MCG TABLET (0.1MG) PO SCH (05:34)
[2024-04-03] MEDS: LEVOTHYROXINE 75MCG TABLET (0.075MG) PO SCH (05:34)
[2024-04-03 08:08] LABS: HEMATOCRIT 31.7 % (42.0-52.0); HEMOGLOBIN 10.2 g/dl (13.5-17.5); MEAN CORPUSCULAR HEMOGLOBIN 30.7 pg (27.0-33.0); MEAN CORPUSCULAR HGB CONC 32.2 g/dl (32.0-36.5); MEAN CORPUSCULAR VOLUME 95.5 fl (80.0-96.0); PLATELET COUNT, AUTOMATED 169 10^3/uL (150-450); RED BLOOD COUNT 3.32 10^6/uL (4.30-6.10); WHITE BLOOD COUNT 5.8 10^3/uL (4.0-10.0)
[2024-04-03 08:32] LABS: ALBUMIN 2.9 G/DL (3.2-5.2); ALKALINE PHOSPHATASE 106 U/L (40-129); ALT/SGPT 9 U/L (7.0-40); AST/SGOT 11 U/L (<34); BILIRUBIN,TOTAL 0.4 MG/DL (0.3-1.2); BLOOD UREA NITROGEN 20 MG/DL (9-23); CALCIUM LEVEL 9.3 MG/DL (8.3-10.6); CARBON DIOXIDE LEVEL 33 MMOL/L (20-31); CHLORIDE LEVEL 104 MMOL/L (98-107); CREATININE FOR GFR 1.21 MG/DL (0.70-1.30); GLOMERULAR FILTRATION RATE > 60.0 (>35); GLUCOSE, FASTING 88 MG/DL (74-106); POTASSIUM SERUM 3.5 MMOL/L (3.5-5.1); SODIUM LEVEL 142 MMOL/L (136-145); TOTAL PROTEIN 6.1 G/DL (5.7-8.2)
[2024-04-03] MEDS: FAMOTIDINE 20 MG TAB PO SCH (08:39)
[2024-04-03] MEDS: DORZOLAMIDE 2% OPHTH SOLN 10 ML BTL OD SCH (08:39)
[2024-04-03] MEDS: ENOXAPARIN 40MG/0.4ML SYRINGE (J1650 PER 10MG) SC SCH (08:39)
[2024-04-03] MEDS: FLUDROCORTISONE ACETATE 0.1 MG TAB PO SCH (08:39)
[2024-04-03] MEDS: UNRESOLVED PATIENT OWN MED ORDER XX SCH (09:00)
[2024-04-03 15:11] LABS: CALCIUM LEVEL 9.5 MG/DL (8.3-10.6); CREATININE FOR GFR 1.25 MG/DL (0.70-1.30); GLOMERULAR FILTRATION RATE 57.9 (>35); MAGNESIUM LEVEL 1.8 MG/DL (1.8-2.4); POTASSIUM SERUM 3.6 MMOL/L (3.5-5.1)
[2024-04-03] MEDS: MAG SULF 1GM/100ML (MAG RUN) 1 GM in IV 1 EA IV SCH (15:44)
[2024-04-03] MEDS: POTASSIUM CHLORIDE 10MEQ SR TABLET PO ONE (15:45)
[2024-04-03 16:39] VITALS: BP_SYST 102; BP_SYST 107; BP_SYST 72; BP_DIAS 48; BP_DIAS 68; BP_DIAS 75
[2024-04-03] MEDS: MIDODRINE 5 MG TAB PO SCH (16:52)
[2024-04-03] MEDS ORDERED: FUROSEMIDE 100MG/10ML VIAL IV SCH (17:00)
[2024-04-03] MEDS: LR 1,000 ML IV ONE (18:17)
[2024-04-03 20:00] VITALS: BP 127/61; TEMP 97.3; O2SAT 98
[2024-04-03] MEDS ORDERED: ENTER DRUG NAME HERE (PATIENT'S OWN MED) PO SCH (21:00)
[2024-04-04 04:14] VITALS: BP 109/62; TEMP 97.3; O2SAT 97
[2024-04-04 05:36] LABS: BASO % 0.7 % (0.0-1.0); EOS # 0.3 10^3/uL (0.0-0.5); EOS % 5.4 % (0.0-3.0); HEMATOCRIT 28.8 % (42.0-52.0); HEMOGLOBIN 9.3 g/dl (13.5-17.5); LYMPH % 32.7 % (24.0-44.0); MEAN CORPUSCULAR HEMOGLOBIN 30.9 pg (27.0-33.0); MEAN CORPUSCULAR HGB CONC 32.3 g/dl (32.0-36.5); MEAN CORPUSCULAR VOLUME 95.7 fl (80.0-96.0); MONO # 0.5 10^3/uL (0.0-0.8); MONO % 8.5 % (2.0-8.0); NEUTROPHILS # 3.2 10^3/uL (1.5-8.5); NEUTROPHILS % 52.5 % (36.0-66.0); PLATELET COUNT, AUTOMATED 161 10^3/uL (150-450); RED BLOOD COUNT 3.01 10^6/uL (4.30-6.10); WHITE BLOOD COUNT 6.1 10^3/uL (4.0-10.0)
[2024-04-04 06:01] LABS: CALCIUM LEVEL 8.8 MG/DL (8.3-10.6); CREATININE FOR GFR 1.37 MG/DL (0.70-1.30); GLOMERULAR FILTRATION RATE 52.1 (>35); MAGNESIUM LEVEL 2.1 MG/DL (1.8-2.4); POTASSIUM SERUM 3.8 MMOL/L (3.5-5.1)
[2024-04-04] MEDS: LR 1,000 ML IV ONE (09:04)
[2024-04-04] MEDS ORDERED: MIDO10TA3 PO (10:37)
== END 2024-04-04 14:48 | disposition home or self-care (01) ==
LOC: M ED 16:20 → M ED INP 16:21 → M MSPAV 04-03 01:08
PROVIDERS: ADMIT Student in an Organized Health Care Education/Training Program; ATTEND Student in an Organized Health Care Education/Training Program
DX: R60.0 Localized edema (principal); I95.1 Orthostatic hypotension; N18.30 Chronic kidney disease, stage 3 unspecified; K21.9 Gastro-esophageal reflux disease without esophagitis; E03.9 Hypothyroidism, unspecified; I12.9 Hypertensive chronic kidney disease with stage 1 through stage 4 chronic kidney disease, or unspecified chronic kidney disease; Z79.899 Other long term (current) drug therapy; F41.9 Anxiety disorder, unspecified; F32.A Depression, unspecified; M54.50 Low back pain, unspecified
CPT/HCPCS: 36415; 71045; 80048; 80053; 80076; 82550; 82553; 83735; 83880; 84436; 84443; 84484; 85025; 85027; 93005; 93970; 96361; 96372; 96374; 96375; 96376; 97161; 97530; 99285; G0378; J1650; J1940; J3475